=== PATIENT | male | born 1975 | race Caucasian/White ===

== ENCOUNTER 2017-06-22 10:03 | Emergency (ER) | payer SELFPAY ==
[~2017-06-22] VITALS: Ht 185.4 cm; Wt 65.0 kg
[2017-06-22 10:05] VITALS: BP 130/82; PULSE 66; RESP 16; TEMP 98.4; O2SAT 100
[2017-06-22] MEDS ORDERED: TAMS5CAP PO (10:26)
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
== END 2017-06-22 10:33 | disposition home or self-care (01) ==
LOC: PHEFT 10:03
DX: N20.0 Calculus of kidney (principal); F17.210 Nicotine dependence, cigarettes, uncomplicated
CPT/HCPCS: 99283

== ENCOUNTER 2017-07-22 22:45 | Emergency (ER) | payer OTHER ==
[~2017-07-22] VITALS: Ht 185.4 cm; Wt 63.5 kg
[~2017-07-22 22:45] MED LIST: TAMS5CAP PO
[2017-07-22 22:53] VITALS: BP 134/80; PULSE 59; RESP 14; TEMP 98.6; O2SAT 100
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
--- NOTE | 2017-07-23 01:43 | PD ---
Physical Exam Date Seen by Provider: Jul 23, 2017 Time Seen by Provider: 01:42 Narrative Accepted in transfer of care from Dr. Tran Data Data Last Documented VS Vital Signs Date Time Temp Pulse Resp B/P (MAP) Pulse Ox O2 Delivery O2 Flow Rate FiO2 07/22/17 23:29 18 100 Room Air 07/22/17 22:53 98.6 59 134/80 (98) Orders Orders Knee, Ltd (1 Or 2vws) (07/22/17 23:36) Shoulder, Limited(2vws) (07/22/17 23:36) Spine, Thoracic-Ap/Lat/Sw(3vw) (07/22/17 23:36) Ct Cerv Spine W/O Contrast (07/23/17 00:05) MDM Medical Record Reviewed: Yes Supervised Visit with JADA: No Interpretation(s) Last Impressions Cervical Spine CT 07/23/17 0005 Signed Impressions: Service Date/Time: Sunday, July 23, 2017 00:30 - CONCLUSION: 1. No acute bony abnormalities. Probable right-sided disc protrusion at C6-7 with encroachment on the right lateral recess. Jesus Le MD Thoracic Spine X-Ray 07/22/172335 Signed Impressions: Service Date/Time: Sunday, July 23, 2017 00:54 - CONCLUSION: Unremarkable examination of the thoracic spine. Jesus Le MD Shoulder X-Ray 07/22/172335 Signed Impressions: Service Date/Time: Sunday, July 23, 2017 00:58 - CONCLUSION: Unremarkable limited examination of the right shoulder. Jesus Le MD Knee X-Ray 07/22/172335 Signed Impressions: Service Date/Time: Sunday, July 23, 2017 01:01 - CONCLUSION: Unremarkable limited examination of the right knee. Jesus Le MD Vital Signs Date Time Temp Pulse Resp B/P (MAP) Pulse Ox O2 Delivery O2 Flow Rate FiO2 07/22/17 23:29 18 100 Room Air 07/22/17 22:53 98.6 59 14 134/80 (98) 100 Differential Diagnosis Accepted in transfer of care from Dr. Tran; please refer to his dictation Narrative Course Accepted in transfer of care from Dr. Tran; follow up imaging results and disposition @2:16 AM imaging studies resulted by radiologist no acute trauma related findings; cervical collar removed by me; patient stable for outpatient management Diagnosis Primary Impression: Acute cervical myofascial strain Qualified Codes: S16.1XXA - Strain of muscle, fascia and tendon at neck level , initial encounter Referrals: Primary Care Physician call for appointment Patient Instructions: General Instructions Additional Instruction: Use ice to areas of soft tissue swelling and inflammation a first 12-24 hours then moist heat May use ibuprofen/Advil/Motrin 600 mg as often as every 6 hours as needed for pain associated with inflammation Basic acetaminophen/Tylenol as often as every 4-6 hours for minor discomfort Use prescription muscle relaxant as prescribed as needed for muscle spasm Follow-up with your primary care provider Return to the emergency department for any concerns or change in condition Med/Other Pt SpecificInfo: Prescription(s) given Scripts Methocarbamol (Robaxin) 750 Mg Tab 750 MG PO Q6HR for Muscle Spasm, #12 TAB 0 Refills Prov: Brandy Be MD 07/23/17 Disposition: 01 DISCHARGE HOME Condition: Stable Brandy Be MD Jul 23, 2017 01:43
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
[2017-07-23] MEDS ORDERED: ROBA750T PO (02:18)
[2017-07-23 02:27] VITALS: BP 132/80
== END 2017-07-23 02:29 | disposition home or self-care (01) ==
LOC: PHEFT 22:45
DX: S16.1XXA Strain of muscle, fascia and tendon at neck level, initial encounter (principal); M54.6 Pain in thoracic spine; M25.511 Pain in right shoulder; M25.561 Pain in right knee; S80.211A Abrasion, right knee, initial encounter; F17.200 Nicotine dependence, unspecified, uncomplicated; Z87.39 Personal history of other diseases of the musculoskeletal system and connective tissue; Z87.442 Personal history of urinary calculi; V89.2XXA Person injured in unspecified motor-vehicle accident, traffic, initial encounter
CPT/HCPCS: 72072; 72125; 73030; 73560; 99284

== ENCOUNTER 2017-08-06 12:47 | Emergency (ER) | payer OTHER ==
[~2017-08-06] VITALS: Ht 185.4 cm; Wt 66.0 kg
[~2017-08-06 12:47] MED LIST changes: +ROBA750T PO; -TAMS5CAP PO
[2017-08-06 12:59] VITALS: PULSE 71; RESP 16; TEMP 98.6; O2SAT 97
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
[2017-08-06] MEDS ORDERED: DIATRIZOATE MEGLUM/DIATRIZOATE SOD 9 ML CUP ONE (14:06)
[2017-08-06 14:18] VITALS: BP 116/80; RESP 16
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
[2017-08-06] MEDS ORDERED: IBUP800T23 PO (16:38)
[2017-08-06] MEDS ORDERED: ROBA500T PO (16:54)
== END 2017-08-06 17:03 | disposition home or self-care (01) ==
LOC: PHEFT 12:47
DX: S20.20XA Contusion of thorax, unspecified, initial encounter (principal); V89.2XXA Person injured in unspecified motor-vehicle accident, traffic, initial encounter; Y92.410 Unspecified street and highway as the place of occurrence of the external cause
CPT/HCPCS: 71100; 74176; 99284; Q9963